=== PATIENT | male | born 1985 | race Caucasian/White ===

== ENCOUNTER 2019-05-29 20:07 | Emergency (ER) | payer BC, OTHER ==
--- NOTE | 2019-05-29 20:19 | ERPHSYRPT ---
- History of Present Illness Time Seen by Provider: 05/29/19 20:18 Source: patient, family Exam Limitations: no limitations Physician History: 34 y/o white male received a piece of furniture from [employer] requiring some assembly. upon assembly, pt could smell wood assoc with the furniture. he immediately began having a generalized red rash and itchiness. pt took a zyrtech and 50mg benadryl. denies any other exposures. denies soa, wheezing or cp. denies n/v/d Timing/Duration: today Severity: moderate Associated Symptoms: rash, No nausea, No vomiting, No abdominal pain, No shortness of breath, No chest pain Allergies/Adverse Reactions: codeine [Codeine] Allergy (Verified 05/29/19 20:24) morphine Allergy (Verified 05/29/19 20:24) Hx Tetanus, Diphtheria Vaccination/Date Given: Yes (2002) Hx Influenza Vaccination/Date Given: No Hx Pneumococcal Vaccination/Date Given: No - Review of Systems Constitutional: No Symptoms Eyes: No Symptoms Ears, Nose, & Throat: No Symptoms Respiratory: No Symptoms Cardiac: No Symptoms Abdominal/Gastrointestinal: No Symptoms Genitourinary Symptoms: No Symptoms Musculoskeletal: No Symptoms Skin: Rash Neurological: No Symptoms Psychological: No Symptoms Endocrine: No Symptoms Hematologic/Lymphatic: No Symptoms Immunological/Allergic: No Symptoms All Other Systems: Reviewed and Negative - Past Medical History Pertinent Past Medical History: No Neurological History: No Pertinent History ENT History: No Pertinent History Cardiac History: No Pertinent History Respiratory History: No Pertinent History Endocrine Medical History: No Pertinent History Musculoskeletal History: No Pertinent History GI Medical History: No Pertinent History History: No Pertinent History Psycho-Social History: No Pertinent History Male Reproductive Disorders: No Pertinent History - Past Surgical History Past Surgical History: No Neuro Surgical History: No Pertinent History Cardiac: No Pertinent History Respiratory: No Pertinent History Gastrointestinal: No Pertinent History Genitourinary: No Pertinent History Male Surgical History: No Pertinent History - Social History Smoking Status: Never smoker Exposure to second hand smoke: No Drug Use: none Patient Lives Alone: No - Nursing Vital Signs Nursing Vital Signs: Initial Vital Signs Temperature 97.5 F 05/29/19 20:13 Pulse Rate 82 05/29/19 20:13 Respiratory Rate 18 05/29/19 20:13 Blood Pressure 163/101 05/29/19 20:13 O2 Sat by Pulse Oximetry 100 10/17/19 20:13 Pain Scale Pain Intensity 0 - Physical Exam General Appearance: mild distress, alert, anxiety Eye Exam: PERRL/EOMI, eyes nml inspection Ears, Nose, Throat Exam: normal ENT inspection, moist mucous membranes Neck Exam: normal inspection, non-tender, supple, full range of motion Respiratory Exam: normal breath sounds, lungs clear, airway intact, No chest tenderness, No respiratory distress Cardiovascular Exam: regular rate/rhythm, normal heart sounds, normal peripheral pulses Gastrointestinal/Abdomen Exam: soft, normal bowel sounds, No tenderness Rectal Exam: not done Back Exam: normal inspection, normal range of motion, No CVA tenderness, No vertebral tenderness Extremity Exam: normal inspection, normal range of motion, pelvis stable Neurologic Exam: alert, oriented x 3, cooperative, 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 Skin Exam: rash Lymphatic Exam: No adenopathy SpO2 Interpretation: normal O2 Delivery: Room Air - Course Nursing assessment & vital signs reviewed: Yes Ordered Tests: Medication Summary Discontinued Medications Generic Name Dose Route Start Last Admin Trade Name Abimbola PRN Reason Stop Dose Admin Famotidine 40 mg 05/29/19 20:33 05/29/19 20:38 Pepcid 20 Mg PO 05/29/19 20:34 40 mg STAT ONE Administration Famotidine Confirm 05/29/19 20:36 Pepcid 20 Mg Administered 05/29/19 20:37 Dose 40 mg .ROUTE .STK-MED ONE Methylprednisolone Sodium Succinate 125 mg 05/29/19 20:33 05/29/19 20:39 Solu-Medrol 125 Mg IM 05/29/19 20:34 125 mg STAT ONE Administration Methylprednisolone Sodium Succinate Confirm 05/29/19 20:36 Solu-Medrol 125 Mg Administered 05/29/19 20:37 Dose 125 mg .ROUTE .STK-MED ONE - Progress Progress: improved Progress Note: 05/29/19 21:18 pt feeling well. pts rash sig resolving. denies respiratory problems Counseled pt/family regarding: diagnosis, need for follow-up - Departure Departure Disposition: Home Clinical Impression: Allergic reaction Condition: Stable Critical Care Time: No Referrals: PRINCE REID MD [Primary Care Provider] - Additional Instructions: continue benadryl 25mg orally 3 times daily for 4 days. return to ED for recurrent symptoms Prescriptions: Famotidine 20 mg [Pepcid 20 MG] 20 mg PO BID #8 tablet Prednisone 10 mg [Deltasone 10 mg] 10 mg PO TID #12 tablet
[2019-05-29] MEDS ORDERED: Pepcid 20 MG PO ONE (20:33)
[2019-05-29] MEDS ORDERED: solu-MEDROL 125 MG IM ONE (20:33)
[2019-05-29] MEDS ORDERED: Pepcid 20 MG ONE (20:36)
[2019-05-29] MEDS ORDERED: solu-MEDROL 125 MG ONE (20:36)
[2019-05-29 21:00] VITALS: O2SAT 98
[2019-05-29 21:42] VITALS: BP 119/86; PULSE 75
== END 2019-05-29 21:42 | disposition home or self-care (01) ==
LOC: ED 20:07
DX: R21 Rash and other nonspecific skin eruption (principal); L29.9 Pruritus, unspecified; T78.49XA Other allergy, initial encounter
CPT/HCPCS: 96372; 99283; J2930; A9270-GY

== ENCOUNTER 2020-10-31 18:49 | Emergency (ER) | payer OTHER ==
[2020-10-31 19:00] VITALS: BP 144/86; PULSE 97; O2SAT 98
--- NOTE | 2020-10-31 19:19 | ERPHSYRPT ---
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 Softball to face while catching. Hit sunglasses which may have hit above left eye and cut around eyebrow. No LOC. Td UTD. No visual changes or injury to eye itself. Bleeding controlled. Occurred: just prior to arrival Severity: mild Method of Injury: direct blow, incised Loss of Consciousness: no loss of consciousness Associated Symptoms: denies symptoms Allergies/Adverse Reactions: codeine [Codeine] Allergy (Verified 10/31/20 19:00) morphine Allergy (Verified 10/31/20 19:00) Home Medications: No Reportable Medications [No Reported Medications] 10/31/20 [History] Hx Tetanus, Diphtheria Vaccination/Date Given: Yes (2002) Hx Influenza Vaccination/Date Given: No Hx Pneumococcal Vaccination/Date Given: No Travel Risk - International Travel Have you traveled outside of the country in past 3 weeks: No - Coronavirus Screening Are you exhibiting any of the following symptoms?: No Close contact with a COVID-19 positive Pt in past 14-21 Days: No - Review of Systems Constitutional: No Fever, No Chills Eyes: No Symptoms Ears, Nose, & Throat: No Symptoms Respiratory: No Cough, No Dyspnea Cardiac: No Chest Pain, No Edema, No Syncope Abdominal/Gastrointestinal: No Abdominal Pain, No Nausea, No Vomiting, No Diarrhea Genitourinary Symptoms: No Dysuria Musculoskeletal: No Back Pain, No Neck Pain Skin: Other (laceration over left eye.), No Rash Neurological: No Dizziness, No Focal Weakness, No Sensory Changes Psychological: No Symptoms Endocrine: No Symptoms All Other Systems: Reviewed and Negative - Past Medical History Pertinent Past Medical History: No Neurological History: No Pertinent History ENT History: No Pertinent History Cardiac History: No Pertinent History Respiratory History: No Pertinent History Endocrine Medical History: No Pertinent History Musculoskeletal History: No Pertinent History GI Medical History: No Pertinent History History: No Pertinent History Psycho-Social History: No Pertinent History Male Reproductive Disorders: No Pertinent History - Past Surgical History Past Surgical History: No Neuro Surgical History: No Pertinent History Cardiac: No Pertinent History Respiratory: No Pertinent History Gastrointestinal: No Pertinent History Genitourinary: No Pertinent History Male Surgical History: No Pertinent History Other Surgical History: wisdom teeth extraction - Social History Smoking Status: Never smoker Exposure to second hand smoke: No Drug Use: none Patient Lives Alone: No - Nursing Vital Signs Nursing Vital Signs: Initial Vital Signs Temperature 98.7 F 10/31/20 18:53 Pulse Rate 97 H 10/31/20 18:53 Blood Pressure 144/86 10/31/20 18:53 O2 Sat by Pulse Oximetry 98 10/31/20 18:53 Pain Scale Pain Intensity 1 - Rose Coma Score Best Eye Response (Rose): (4) open spontaneously Best Verbal Response (Rose): (5) oriented Best Motor Response ([place]): (6) obeys commands Rose Total: 15 - Physical Exam General Appearance: no apparent distress Head Injury: lacerations Eye Exam: bilateral eye: normal inspection, PERRL, EOMI ENT Exam: airway nml Neck Exam: supple, trachea midline Cardiovascular/Respiratory Exam: chest non-tender Gastrointestinal/Abdominal Exam: soft, non tender, no distention Back Exam: normal inspection, No vertebral tenderness Extremity Exam: non-tender, normal range of motion, normal inspection Mental Status Exam: alert, oriented x 3, cooperative orthopedic dentist Exam: normal hearing, normal speech, PERRL Motor/Sensory Exam: no motor deficit, no sensory deficit Skin Exam: laceration (2cm over left eye. No deformity. Clean linear cut. 2cm abrasion over center eyebrow.) SpO2 Interpretation: normal SpO2: 98 Procedures - Laceration/Wound Repair Left Eye Wound Location: Left, face Wound Length (cm): 2 Wound's Depth, Shape: into muscle, linear Wound Explored: clean Irrigated: No Hibiclens Prep: Yes Wound Repaired With: Dermabond - Course Nursing assessment & vital signs reviewed: Yes - Progress Progress Note: 10/31/20 19:24 Laceration repair. XR not needed. Not tender evelin-orbitally. NO deformity or swelling. Pt declines sutures. Will dermabond. Pt tolerated well. DC home with precautions. Counseled pt/family regarding: diagnosis, need for follow-up - Departure Departure Disposition: Home Clinical Impression: Facial laceration Condition: Stable Critical Care Time: No Referrals: PRINCE REID MD [Primary Care Provider] - Instructions: Laceration Repair With Glue (DC) Additional Instructions: Monitor symptoms closely. Keep area dry for 5 days then you can start getting it wet. Ice to area to minimize swelling and bruising. Motrin for pain. Follow up with your PCP in 2-3 days for recheck. Return to ER if worse.
== END 2020-10-31 19:26 | disposition home or self-care (01) ==
LOC: ED 18:49
DX: S01.81XA Laceration without foreign body of other part of head, initial encounter (principal); W21.07XA Struck by softball, initial encounter; Y93.64 Activity, baseball; Y92.9 Unspecified place or not applicable
CPT/HCPCS: 12013; 99283